=== PATIENT | male | born 1985 ===

== ENCOUNTER 2017-09-11 23:56 | Emergency (ER) | payer OTHER ==
[~2017-09-11] VITALS: Ht 170.2 cm; Wt 122.7 kg
[2017-09-11 23:59] VITALS: Ht 170.2 cm; Wt 122.7 kg
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
[2017-09-12] MEDS ORDERED: IBUPROFEN 600 MG TAB PO ONE (00:30)
== END 2017-09-12 00:37 | disposition home or self-care (01) ==
LOC: E/R 23:56
DX: S60.512A Abrasion of left hand, initial encounter (principal); F17.210 Nicotine dependence, cigarettes, uncomplicated; X58.XXXA Exposure to other specified factors, initial encounter; Y92.9 Unspecified place or not applicable; Z02.89 Encounter for other administrative examinations
CPT/HCPCS: 99282